=== PATIENT | male | born 1965 | race Caucasian/White ===

== ENCOUNTER 2020-07-04 10:09 | Emergency (ER) | payer OTHER ==
--- NOTE | 2020-07-04 11:43 | ER Document Report ---
ED Medical Screen (RME) - General Chief Complaint: Shortness Of Breath Stated Complaint: BREATHING ISSUE Time Seen by Provider: 07/04/20 11:34 Primary Care Provider: YOON ARCE [Primary Care Provider] - Follow up as needed Mode of Arrival: Ambulatory Information source: Patient Notes: HPI; 55-year-old male presents to the emergency room complaining of shortness of breath, cough, general body aches, and fatigue for the past 5 days. Patient states he had a Covid test 2 days ago but has not received the results. He has not had any known Covid exposure. Has been taking Tylenol with minimal relief. PE: Alert and oriented x3. Lungs: Clear to auscultation without rales, rhonchi, wheezes. Heart: Tachycardic without murmurs, rubs, gallops. I have greeted and performed a rapid initial assessment of this patient. A comprehensive ED assessment and evaluation of the patient, analysis of test results and completion of the medical decision making process will be conducted by additional ED providers. I have specifically instructed the patient or family members with the patient to immediately return to any nursing staff should anything change in the patient's condition or with their chief complaint. TRAVEL OUTSIDE OF THE [place] IN LAST 30 DAYS: No - Related Data Allergies/Adverse Reactions: Wbeebcc-Ulo-Xtw Reductase Inhibitor Allergy (Verified 07/04/20 11:30) Past Medical History - Social History Frequency of alcohol use: Heavy Physical Exam - Vital signs Vitals: Temp Pulse Resp BP Pulse Ox 98.3 F 102 H 18 142/90 H 98 07/04/20 10:18 07/04/20 10:18 07/04/20 10:18 07/04/20 10:18 07/04/20 10:18 Course - Vital Signs Vital signs: Temp Pulse Resp BP Pulse Ox 98.3 F 102 H 18 142/90 H 98 07/04/20 10:18 07/04/20 10:18 07/04/20 10:18 07/04/20 10:18 07/04/20 10:18 Doctor's Discharge - Discharge Referrals: YOON ARCE [Primary Care Provider] - Follow up as needed
--- NOTE | 2020-07-04 13:07 | RADIOLOGY REPORT (SQ) ---
EXAM DESCRIPTION: CHEST SINGLE VIEW IMAGES COMPLETED DATE/TIME: 07/04/2020 12:58 pm REASON FOR STUDY: dyspnea COMPARISON: None. NUMBER OF VIEWS: One view. TECHNIQUE: Single frontal radiographic view of the chest acquired. LIMITATIONS: None. FINDINGS: LUNGS AND PLEURA: No opacities, masses or pneumothorax. No pleural effusion. MEDIASTINUM AND HILAR STRUCTURES: No masses. Contour normal. HEART AND VASCULAR STRUCTURES: Heart normal in size. Normal vasculature. BONES: No acute findings. HARDWARE: None in the chest. OTHER: No other significant finding. IMPRESSION: NO SIGNIFICANT RADIOGRAPHIC FINDING IN THE CHEST. TECHNICAL DOCUMENTATION: JOB ID: [id number] 2010 [employer]- All Rights Reserved Reading location - IP/workstation name: [email or web address]
[2020-07-04 13:41] LABS: ABSOLUTE LYMPHOCYTES (AUTO) 2.5 10^3/uL (0.5-4.7); ABSOLUTE MONOCYTES (AUTO) 0.5 10^3/uL (0.1-1.4); ABSOLUTE NEUT (AUTO) 2.2 10^3/uL (1.7-8.2); BASOPHILS % (AUTO) 0.7 % (0-2); EOSINOPHILS % (AUTO) 0.8 % (0-6); HEMATOCRIT 41.2 % (37.9-51.0); HEMOGLOBIN 14.2 g/dL (13.5-17.0); LYMPHOCYTES % (AUTO) 46.5 % (13-45); MEAN CORPUSCULAR HGB CONC 34.5 g/dL (32.0-36.0); MEAN CORPUSCULAR VOLUME 90 fl (80-97); MONOCYTES % (AUTO) 9.6 % (3-13); PLATELET COUNT 211 10^3/uL (150-450); RED BLOOD COUNT 4.59 10^6/uL (4.35-5.55); RED CELL DISTRIBUTION WIDTH 12.8 % (11.5-14.0); SEGMENTED NEUTROPHILS % (AUTO) 42.4 % (42-78); TOTAL CELLS COUNTED % (AUTO) 100 %; WHITE BLOOD COUNT 5.3 10^3/uL (4.0-10.5)
[2020-07-04 13:45] LABS: ALBUMIN 4.5 g/dL (3.5-5.0); ALKALINE PHOSPHATASE 97 U/L (38-126); ANION GAP 12 (5-19); ASPARTATE AMINO TRANSFERASE 91 U/L (17-59); BILIRUBIN,DIRECT 0.2 mg/dL (0.0-0.4); BILIRUBIN,TOTAL 0.6 mg/dL (0.2-1.3); BLOOD UREA NITROGEN 15 mg/dL (7-20); CALCIUM 9.1 mg/dL (8.4-10.2); CARBON DIOXIDE 27 mmol/L (22-30); CHLORIDE 103 mmol/L (98-107); GLUCOSE 109 mg/dL (75-110); POTASSIUM 4.4 mmol/L (3.6-5.0); TOTAL PROTEIN 7.7 g/dL (6.3-8.2)
--- NOTE | 2020-07-04 15:20 | ER Document Report ---
ED Respiratory Problem <DUDLEY CRONIN Ana - Last Filed: 07/04/20 17:54> - General Mode of Arrival: Ambulatory Information source: Patient TRAVEL OUTSIDE OF THE [place] IN LAST 30 DAYS: No <PRADIP NIXON - Last Filed: 07/06/20 01:18> - General Chief Complaint: Shortness Of Breath Stated Complaint: BREATHING ISSUE Time Seen by Provider: 07/04/20 11:34 Primary Care Provider: YOON ARCE [NO LOCAL MD] - Follow up as needed Notes: This 55-year-old man presents to the emergency department with a 5-day history of feeling poorly. He stated he has been in bed and feeling very weak and fatigued. He also has developed some shortness of breath. He states that he is breathing abnormally. 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 And breathing as though he is running. He denies a known contact with the coronavirus, however, is concerned that he has contracted the illness. He had an outpatient test performed, however has not received the results. His O2 sat is at 98% on room air, however, the patient complains of feeling short of breath. (PRADIP NIXON) - Related Data Allergies/Adverse Reactions: Mmmqati-Jah-Nsf Reductase Inhibitor Allergy (Verified 07/04/20 11:30) Past Medical History - General Information source: Patient - Social History Smoking Status: Never Smoker Frequency of alcohol use: Heavy Family History: Reviewed & Not Pertinent <PRADIP NIXON - Last Filed: 07/06/20 01:18> Review of Systems <PRADIP NIXON - Last Filed: 07/06/20 01:18> - Review of Systems Notes: Constitutional: + Fatigue HENT: Negative for sore throat. Eyes: Negative for visual changes. Cardiovascular: Negative for chest pain. Respiratory: See HPI. Gastrointestinal: Negative for abdominal pain, vomiting or diarrhea. Genitourinary: Negative for dysuria. Musculoskeletal: Negative for back pain. Skin: Negative for rash. Neurological: Negative for headaches, weakness or numbness. 10 point ROS negative except as marked above and in HPI. (PRADIP NIXON) Physical Exam <PRADIP NIXON - Last Filed: 07/06/20 01:18> - Vital signs Vitals: Temp Pulse Resp BP Pulse Ox 98.3 F 102 H 18 142/90 H 98 07/04/20 10:18 07/04/20 10:18 07/04/20 10:18 07/04/20 10:18 07/04/20 10:18 - Notes Notes: PHYSICAL EXAMINATION: Physical Exam: General: Well-nourished well-developed 55-year-old man in no acute distress HEENT: NC/AT, pupils equal round and reactive to light, MM moist,nares clear, oropharynx clear, airway patent Neck: supple, no adenopathy, no masses. Good range of motion Lungs: Good air movement, no wheezes rales or rhonchi CVS: Regular rate and rhythm no murmur gallop or rub Abdomen: Soft, active, nontender, no masses, no hepatosplenomegaly Ext: No edema, clubbing or cyanosis. Neuro: Alert and responsive, moving all 4 extremities on command, cranial nerves intact, no focal findings Skin: Intact no open lesions, no rash (PRADIP NIXON) Course - Laboratory Results Result Diagrams: 07/04/20 13:00 07/04/20 13:00 <DUDLEY CRONIN - Last Filed: 07/04/20 17:54> - Laboratory Results Result Diagrams: 07/04/20 13:00 07/04/20 13:00 Critical Laboratory Results Reviewed: Yes Attending or Supervising Physician who Reviewed Labs: PRADIP NIXON - Karina 19+ - Radiology Results Critical Radiology Results Reviewed: No Critical Results <PRADIP NIXON - Last Filed: 07/06/20 01:18> - Re-evaluation Re-evalutation: 07/04/20 16:57 Patient presented with a positive coronavirus test today and also shortness of breath. I have ordered a CTA. I have discussed the patient's findings with him and why we are getting the CT scan of the chest. He is in agreement with the plan. I have turned the patient's care over to my colleague , he will follow up on the CT scan and patient disposition. (PRADIP NIXON) - Vital Signs Vital signs: Temp Pulse Resp BP Pulse Ox 99.5 F 103 H 18 165/99 H 97 07/04/20 18:23 07/04/20 18:23 07/04/20 18:23 07/04/20 18:23 07/04/20 18:23 - Laboratory Results Laboratory Results Interpreted: 07/04/20 07/04/20 07/04/20 13:00 13:00 13:45 Lymph % (Auto) 46.5 H AST 91 H ALT 99 H SARS-CoV-2 (PCR) DETECTED H 07/04/20 15:47 I have reviewed laboratory data and used this information for the treatment decisions regarding the patient. (PRADIP NIXON) Discharge <DUDLEY CRONIN - Last Filed: 07/04/20 17:54> <PRADIP NIXON - Last Filed: 07/06/20 01:18> - Discharge Clinical Impression: COVID-19 Condition: Good Disposition: HOME, SELF-CARE Instructions: COVID-19 Guidance for Persons Under Investigation Additional Instructions: Your Covid test is positive. Your CT scan is negative for pneumonia and for blood clots. You should quarantine at home and have no contact with anyone outside of your immediate household for at least 14 days. Contact your primary care physician for follow-up instructions. Return to the emergency department if your symptoms worsen or if any other concerning symptoms develop. Referrals: LOCALMD,NO [NO LOCAL MD] - Follow up as needed
[2020-07-04] MEDS ORDERED: NORMAL SALINE 1000 ML 1,000 ML IV ONE (15:49)
--- NOTE | 2020-07-04 16:15 | RADIOLOGY REPORT (SQ) ---
EXAM DESCRIPTION: CTA CHEST IMAGES COMPLETED DATE/TIME: 07/04/2020 3:57 pm REASON FOR STUDY: Shortness of breath COMPARISON: None. TECHNIQUE: CT scan of the chest performed using helical scanning technique with dynamic intravenous contrast injection. Images reviewed with lung, soft tissue and bone windows. Reconstructed coronal and sagittal MPR images reviewed. Additional 3 dimensional post-processing performed to develop Maximal Intensity Projection images (ND P). All images stored on PACS. All CT scanners at this facility use dose modulation, iterative reconstruction, and/or weight based d osing when appropriate to reduce radiation dose to as low as reasonably achievable (ALARA). [facility]: Dose Right [facility]: CareDose [facility]: Dose Right [facility]: Teradose 4D [facility]: [facility] CONTRAST TYPE AND DOSE: contrast/concentration: Isovue 350.00 mmol/ml; Total Contrast Delivered: 70. 0 ml; Total Saline Delivered: 70.0 ml RENAL FUNCTION: GFR > 60. RADIATION DOSE: CT Rad equipment meets quality standard of care and radiation dose reduction techniq ues were employed. CTDIvol: 6.6 - 16.7 mGy. DLP: 634 mGy-cm. . LIMITATIONS: None. FINDINGS: LUNGS AND PLEURA: No masses, infiltrates, or pneumothorax. No pleural effusions or pleura l calcifications. AORTA AND GREAT VESSELS: No aneurysm. No dissection. HEART: No pericardial effusion. PULMONARY ARTERIES: No emboli visualized in the main pulmonary arteries or the segmental branches. HILAR AND MEDIASTINAL STRUCTURES: No identified masses or abnormal nodes. HARDWARE: None in the chest. UPPER ABDOMEN: No significant findings. Limited exam. THYROID AND OTHER SOFT TISSUES: No masses. No adenopathy. BONES: No acute or significant finding. 3D MIPS: Confirm above findings. OTHER: No other significant finding. IMPRESSION: NORMAL CTA OF THE CHEST. NO PULMONARY EMBOLI. COMMENT: Quality ID # [id number]: Final reports with documentation of one or more dose reduction techniques (e.g., Automated exposure control, adjustment of the mA and/or kV according to patient size, use of iterative reconstruction technique) TECHNICAL DOCUMENTATION: JOB ID: [id number] 2010 [employer]- All Rights Reserved Reading location - IP/workstation name: [email or web address]
--- NOTE | 2020-07-04 17:54 | ER Document Report ---
Doctor's Note Notes: 07/04/20 17:53 Dr. Suarez asked me to follow-up on the patient's CTA. The patient is known Covid positive. He has been ill for about a week. CTA came back negative for pneumonia or PE. I went in and spoke with the patient. He is quite stable alert and cheerful. He is comfortable going home to rest. He understands that he needs to quarantine at home for at least 14 days and until his symptoms have resolved and has had a negative Covid test. He is currently studying for an associates degree in [employer] and will be speaking with his University about his diagnosis. I instructed him to follow-up with his primary care provider return to see us if his symptoms worsen or if any other concerning symptoms develop.
[2020-07-04 18:24] VITALS: BP 165/99
--- NOTE | 2020-07-04 23:57 | EKG REPORT ---
SEVERITY:- BORDERLINE ECG - SINUS TACHYCARDIA BORDERLINE T ABNORMALITIES, INFERIOR LEADS : Confirmed by: Dragan Barfield 04-Jul-2020 23:55:35
== END 2020-07-04 18:23 | disposition home or self-care (01) ==
LOC: ER 10:09
DX: U07.1 COVID-19 (principal); R06.02 Shortness of breath; Z88.8 Allergy status to other drugs, medicaments and biological substances
CPT/HCPCS: 93005; 99285; 96360; 36415; 85025; 0202U ×23; 80053; 84484; 71045; 71275; 93010; J7030